=== PATIENT | male | born 1960 | race Caucasian/White ===

== ENCOUNTER 2021-10-03 12:10 | Outpatient (CLI) | payer BC, SELFPAY ==
[2021-10-03] VITALS (7 sets, daily range): BP systolic 89–141; BP diastolic 51–82; PULSE 52–72; RESP 16–18; TEMP 37.2–37.6; O2SAT 90–94; BMI 40.1
[2021-10-03] MEDS: 0.9% Saline Lock 10 ML Syringe IV (12:19)
--- NOTE | 2021-10-03 12:38 | NURSING ---
Pt c/o of feeling hot. Ice pack given. Pt layed back supine in recliner. Vs taken. Infusion stopped.
[2021-10-03] MEDS: 0.9% Normal Saline 1,000 ML 1000 ML IV (12:55)
--- NOTE | 2021-10-03 13:25 | NURSING ---
Bp now greater than 100/50. Infusion restarted.
== END 2021-10-03 15:10 | disposition home or self-care (01) ==
LOC: MS3OUT 12:11 → MS3 12:11
PROVIDERS: Referring Provider Nurse Practitioner Adult Health; Visit Provider Nurse Practitioner Adult Health
DX: Z23 Encounter for immunization (principal); U07.1 COVID-19
CPT/HCPCS: J7030; J7050; M0245; Q0245; A4216